=== PATIENT | male | born 2000 | race African-American/Black ===

== ENCOUNTER 2020-05-25 20:51 | Inpatient (IN) | payer MEDICAID ==
[~2020-05-25] VITALS: Ht 190.5 cm; Wt 83.0 kg
[2020-05-25] MEDS ORDERED: IV NORMAL SALINE 1000 ML BAG IV ONE (21:00)
[2020-05-25] MEDS ORDERED: NALOXONE HCL 0.4 MG/ML AMPUL IV ONE ×2 (21:00→23:45)
--- NOTE | 2020-05-25 21:00 | NUR ---
PER [facility] CALLED FOR OVERDOSE ON OXYCODONE, NARCAN ADMIN PER RA. PATIENT CONFUSED, DISORIENTED AND VERY RESTLESS. UNABLE TO RELAX.
[2020-05-25] MEDS ORDERED: NALOXONE 2 MG/2 ML SYRINGE ONE (21:15)
[2020-05-25 21:17] LABS: BASOPHILS % (AUTO) 0.2 % (0.0-2.0); EOSINOPHILS % (AUTO) 0.3 % (0.0-7.0); HEMATOCRIT 49.9 % (36.7-47.1); HEMOGLOBIN 16.4 g/dL (12.5-16.3); LYMPHOCYTES # (AUTO) 2.6 K/uL (20.0-40.0); LYMPHOCYTES % (AUTO) 13.9 % (20.5-51.5); MEAN CORPUSCULAR HEMOGLOBIN 32.3 uug (23.8-33.4); MEAN CORPUSCULAR HGB CONC 33 g/dL (32.5-36.3); MEAN CORPUSCULAR VOLUME 98.6 fL (73.0-96.2); MONOCYTES # (AUTO) 1.3 K/uL (2.0-10.0); NEUTROPHILS # (AUTO) 14.9 K/uL (1.8-8.9); NEUTROPHILS % (AUTO) 78.6 % (38.5-71.5); PLATELET COUNT (AUTO) 267 K/uL (152-348); RED BLOOD CELL COUNT(AUTO) 5.06 MIL/uL (4.06-5.63); WHITE BLOOD COUNT (AUTO) 18.9 K/uL (3.6-10.2)
[2020-05-25 21:22] LABS: CARBON DIOXIDE 17 mmol/L (21-32); CHLORIDE 102 mmol/L (98-107); CREATININE 2.6 mg/dL (0.6-1.3); GLUCOSE 97 mg/dL (74-106); POTASSIUM 5.3 mmol/L (3.5-5.1); UREA NITROGEN, BLOOD 21 mg/dL (7-18)
[2020-05-25 21:28] LABS: ACETAMINOPHEN < 2.0 ug/mL (10-30); ALANINE AMINOTRANSFERASE 348 U/L (16-63); ALKALINE PHOSPHATASE 126 U/L (50-136); ASPARTATE AMINOTRANSFERASE 345 U/L (15-37); BILIRUBIN,DIRECT 0.2 mg/dL (0.0-0.2); BILIRUBIN,TOTAL 0.8 mg/dL (0.2-1.0); TOTAL PROTEIN, SERUM 8.6 g/dL (6.4-8.2)
[2020-05-25 21:31] LABS: ETHANOL < 3 MG/DL (0-0)
[2020-05-25] MEDS ORDERED: NALOXONE HCL 0.4 MG/ML AMPUL ONE ×3 (22:11→23:00)
[2020-05-25] MEDS ORDERED: NALOXONE HCL 8 MG in IV NORMAL SALINE 230 ML IV PRN ×2 (22:45→23:45)
[2020-05-25] MEDS ORDERED: Z GUARD REMEDY PASTE 57 GM TUBE TOP PRN (23:45)
[2020-05-25] MEDS ORDERED: ONDANSETRON 4 MG/2 ML VIAL IV PRN (23:45)
[2020-05-26] VITALS (17 sets, daily range): BP systolic 109–145; BP diastolic 49–91
[2020-05-26 00:12] LABS: *BILIRUBIN,URIN NEGATIVE (NEGATIVE); *BLOOD, URINE 3+ (NEGATIVE); *CLARITY,URINE SLIGHTLY CLOUDY (CLEAR); *COLOR,URINE DARK YELLOW (YELLOW); *KETONES,URINE NEGATIVE (NEGATIVE); *UROBILINOGEN,URINE 0.2 E.U./dl (NORMAL); LEUKOCYTE ESTERASE ,URINE NEGATIVE (NEGATIVE); NITRITE, URINE NEGATIVE (NEGATIVE); UGLUCOSE NEGATIVE (NEGATIVE)
[2020-05-26] MEDS ORDERED: IV NS 1000 ML 1,000 ML IV ONE (00:15)
[2020-05-26 00:21] LABS: BACTERIA,URINE FEW /HPF (NONE SEEN); SQUAMOUS EPITHELIAL CELL,UR FEW /HPF (NONE SEEN)
--- NOTE | 2020-05-26 00:55 | NUR ---
Pt. admitted to ICU bed 1, under care of Dr. Gee. Belongs List completed. Report given to ICU nurse Bruce.
--- NOTE | 2020-05-26 01:00 | NUR ---
Admitted to CCU#1 via gurney from ED. \ ST / secured entrance monitor. Alert & orientated X 4, cooperative, pleasant gentleman; restraints removed. Denies suicidal idealogies. Bed alarm on; close ICU monitoring. Left & right PIV; site clear via pumps. Narcan 4 mg / 500 cc 5DW @ 25 cc/hr to right A/C. C/O right eye draining causing blurred vision. C/O has to assist moving his left arm, using his right arm, feels numb; unknown reason. C/O right inner thigh pain; unknown reason. C/O not being able to void; refusing Fernandez catheter; bladder scan 348cc. Stated he took Oxycodone 2.5 mg & Klonopin generic.
--- NOTE | 2020-05-26 01:30 | NUR ---
received patient from ER , awake , oriented , able to follow command on 2 liters nasal cannula , on narcan drip at 25 ml / hr , 4 mg / 500 ml , per pharmacist started in ER , 20 GA IN LEFT AC ,sinus tachy at 112 , no fever , vs stable , complains of left shoulder pain 5/10
[2020-05-26 01:31] LABS: *AMPHETAMINE, URINE NEGATIVE (NEGATIVE); *BARBITURATE, URINE NEGATIVE (NEGATIVE); *CANNABINOID, URINE POSITIVE (NEGATIVE); *COCCAINE, URINE NEGATIVE (NEGATIVE); *OPIATE, URINE NEGATIVE (NEGATIVE); *PHENCYCLIDINE SCREEN,URINE NEGATIVE (NEGATIVE)
[2020-05-26] MEDS ORDERED: NALOXONE HCL IV PRN (01:45)
[2020-05-26] MEDS ORDERED: NORMAL SALINE IV PRN (01:45)
--- NOTE | 2020-05-26 02:00 | NUR ---
bladder scan done 358 ml recorded , refused to have de leon imserted at this time
[2020-05-26] MEDS: IV 1/2NS 1000 ML 1,000 ML IV PRN ×2 (02:36→15:56)
[2020-05-26] MEDS ORDERED: SODIUM POLYSTYRENE SULFONATE 15 G/60 ML LIQUID UDC PO ONE ×2 (03:15)
[2020-05-26] MEDS ORDERED: SODIUM POLYSTYRENE SULF POWDER 15 GM UDC ONE (04:03)
--- NOTE | 2020-05-26 04:10 | NUR ---
STAT CT head done / increased weakness left upper extremity & pain. Note to pharmacy: [facility] would not scan / eMar.
--- NOTE | 2020-05-26 05:00 | NUR ---
OK to turn off Narcan gtt / Dr Saldaña. Left shoulder X-ray ordered.
[2020-05-26 05:40] LABS: BASOPHILS % (AUTO) 0.1 % (0.0-2.0); HEMATOCRIT 46.6 % (36.7-47.1); HEMOGLOBIN 15.8 g/dL (12.5-16.3); LYMPHOCYTES # (AUTO) 0.8 K/uL (20.0-40.0); MEAN CORPUSCULAR HEMOGLOBIN 32.1 uug (23.8-33.4); MEAN CORPUSCULAR HGB CONC 34 g/dL (32.5-36.3); MEAN CORPUSCULAR VOLUME 94.7 fL (73.0-96.2); MONOCYTES # (AUTO) 1.5 K/uL (2.0-10.0); MONOCYTES % (AUTO) 9.9 % (0.0-11.0); NEUTROPHILS # (AUTO) 13.1 K/uL (1.8-8.9); PLATELET COUNT (AUTO) 233 K/uL (152-348); RED BLOOD CELL COUNT(AUTO) 4.92 MIL/uL (4.06-5.63); WHITE BLOOD COUNT (AUTO) 15.4 K/uL (3.6-10.2)
[2020-05-26 05:48] LABS: CREATININE 1.8 mg/dL (0.6-1.3); MAGNESIUM 2.1 mg/dL (1.8-2.4); PHOSPHOROUS 4.3 mg/dL (2.5-4.9); POTASSIUM 4.9 mmol/L (3.5-5.1); TOTAL PROTEIN, SERUM 7.1 g/dL (6.4-8.2)
[2020-05-26 05:54] LABS: THYROID STIMULATING HORMONE 0.312 mIU/mL (0.358-3.740)
--- NOTE | 2020-05-26 07:30 | NUR ---
RECIEVED PT LYING IN BED, AWAKE, ALERT AND ORIENTEDX3. SPEECH IS CLEAR.MOVES ALL EXTREMETIES EXCEPT THE LEFT ARM IS WEAK AND FLACCID. GOOD RADIAL PULSE. PT DENIES ANY MEADOWS OR DIZZINESS. SEEN AND EXAMINED BY DR BOO, NO NEW ORDERS MADE. SEEN AND EXAMINED BY RUI GUERRERO, BOTH OF THEM AWARE OF PT'S LEFT ARM WEAKNESS. MAIN IVF IS 1/2 NS AT 75 ML /HR ON THE LEFT AC. PT REFUSED TO HAVE A NEEDLE ON HIS LEFT ARM. MOVED IVF ON THE RIGHT AC.
--- NOTE | 2020-05-26 08:30 | NUR ---
PT IS VERY HUNGRY, ATE GOOD BREAKFAST AND TOLERATING WELL . GOOD SWALLOWING REFLEX.
--- NOTE | 2020-05-26 11:00 | NUR ---
PT IS BEING TRANSFERRED TO TELE. [facility] AWARE.
--- NOTE | 2020-05-26 13:30 | NUR ---
SEE AND EVALUATED BY THE CRISIS TEAM EDWIGE. NO HOLD ORDER. PT IS REFFERED TO PSYCHIATRIC CONSULTATION, DR WEN.
--- NOTE | 2020-05-26 14:00 | NUR ---
REPORT GIVEN TO TRINA ARMENTA.
--- NOTE | 2020-05-26 15:00 | NUR ---
PT IS TRANSFERRED TO 310 VIA W/C. CONDITION IS STAB LE BUT LEFT ARM STILL REMAINS FLACCID. RN IS AWARE.
--- NOTE | 2020-05-26 15:25 | NUR ---
received patient from ccu, oriented to room ,made comfortable. assisted to brp, voided. voided clear yellow urine without difficulty.aware to call nurse for assistance to prevent fall, injury, verbalized understanding. left arm flaccid ,needed to be lifted by right arm for placement on pillow, or towards abdomen. able to move left shoulder well. denies pain but feels tingling on left fingers when touched. otherwise, neuro signs are normal. right antecubital iv # [address], 1/2 ns at 75 ml/ hr. no skin breakdown noted.
--- NOTE | 2020-05-26 16:27 | NUR ---
dr ibarra in saw patient, made order and carried out.
--- NOTE | 2020-05-26 18:01 | NUR ---
urine specimen sent to lab. noel Jamil aware patient request a call to his psych counselor, Yosef Reed. [phone]. will do in am after pt seen by our psychiatrist. patient aware, appreciative. able to move left hand wrist now.
[2020-05-26 18:04] LABS: *BILIRUBIN,URIN NEGATIVE (NEGATIVE); *BLOOD, URINE 2+ (NEGATIVE); *CLARITY,URINE CLEAR (CLEAR); *COLOR,URINE YELLOW (YELLOW); *KETONES,URINE NEGATIVE (NEGATIVE); *UROBILINOGEN,URINE 0.2 E.U./dl (NORMAL); LEUKOCYTE ESTERASE ,URINE NEGATIVE (NEGATIVE); NITRITE, URINE NEGATIVE (NEGATIVE); PH,URINE 6.5 (5.0-8.0); UGLUCOSE NEGATIVE (NEGATIVE)
[2020-05-26 18:37] LABS: *CREATININE,URINE 77.1 mg/dL (30-125); *URINE TOTAL PROTEIN RANDOM 22.6 mg/dL (<150/24HR)
[2020-05-26 19:55] LABS: BACTERIA,URINE FEW /HPF (NONE SEEN); SQUAMOUS EPITHELIAL CELL,UR FEW /HPF (NONE SEEN)
--- NOTE | 2020-05-27 | NUR ---
Patient is asleep. Psych consult by dr. Le completed. patient is asking not to be on IV fluids. Good oral intake and good appetite. Drank 2 glasses of juice and 3 cups of water. Pleasant demeanor, coherent in conversation, denies SI or attempts to commit suicide. Claims that he was affected by the quarantine and made a mistake when he bought what he appears to be oxycontin and Klonopin on the street. 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 Tingling is reported from elbow down to the fingertips. Patient ambulated safely once to the bathroom without assistance. Gait is steady.
[2020-05-27 00:18] VITALS: BP 139/77
[2020-05-27 05:33] VITALS: BP 131/82
[2020-05-27 06:15] LABS: BASOPHILS % (AUTO) 0.2 % (0.0-2.0); EOSINOPHILS % (AUTO) 0.3 % (0.0-7.0); HEMATOCRIT 46.3 % (36.7-47.1); HEMOGLOBIN 15.7 g/dL (12.5-16.3); LYMPHOCYTES # (AUTO) 1.8 K/uL (20.0-40.0); LYMPHOCYTES % (AUTO) 13.6 % (20.5-51.5); MEAN CORPUSCULAR HEMOGLOBIN 31.9 uug (23.8-33.4); MEAN CORPUSCULAR HGB CONC 34 g/dL (32.5-36.3); MEAN CORPUSCULAR VOLUME 94.2 fL (73.0-96.2); MONOCYTES # (AUTO) 1.2 K/uL (2.0-10.0); MONOCYTES % (AUTO) 8.7 % (0.0-11.0); NEUTROPHILS # (AUTO) 10.3 K/uL (1.8-8.9); NEUTROPHILS % (AUTO) 77.2 % (38.5-71.5); PLATELET COUNT (AUTO) 213 K/uL (152-348); RED BLOOD CELL COUNT(AUTO) 4.92 MIL/uL (4.06-5.63); WHITE BLOOD COUNT (AUTO) 13.4 K/uL (3.6-10.2)
[2020-05-27 06:40] LABS: BILIRUBIN,TOTAL 1.2 mg/dL (0.2-1.0); CREATININE 1.2 mg/dL (0.6-1.3); MAGNESIUM 2.3 mg/dL (1.8-2.4); PHOSPHOROUS 1.7 mg/dL (2.5-4.9); POTASSIUM 3.8 mmol/L (3.5-5.1); TOTAL PROTEIN, SERUM 7.1 g/dL (6.4-8.2)
[2020-05-27 08:00] VITALS: BP 124/90
--- NOTE | 2020-05-27 08:30 | NUR ---
Received pt in bed asleep but arousable to name. Denied any suicidal ideation. On RA with no SOB or distress noted at this time. 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 aware. IV on right AC 20g flushed and patent. Able to ambulate to bathroom. No other complaints. Bed locked in lowest position with siderails 2x up. Call light and phone within reach.
[2020-05-27] MEDS ORDERED: NEUTRA PHOS PACKET PO ONE (09:15)
--- NOTE | 2020-05-27 10:45 | NUR ---
Pt was refusing IV fluids, educated with risks and benefits, verbalized understanding and agreed for IV fluids. Old bag had 400mL remaining, started a new 1/2 NS 1000mL IV bag.
[2020-05-27] MEDS: IV 1/2NS 1000 ML 1,000 ML IV PRN (10:47)
[2020-05-27 11:45] VITALS: BP 116/73
[2020-05-27 16:00] VITALS: BP 123/72
--- NOTE | 2020-05-27 18:38 | NUR ---
Pt took shower today, assisted by Eboni SIEGEL.
--- NOTE | 2020-05-27 18:38 | NUR ---
Pt stable throughout shift. Complained of tingling sensation still in his left forearm. MD aware. Encouraged to do active range of motions, verbalized understanding
--- NOTE | 2020-05-27 19:00 | NUR ---
PATIENT ALERT ORIENTED, NO SOB NO CHEST PAIN. PATIENT TELE MONITOR SINUS RHYTHM, CONT TO MONITOR.
[2020-05-27 20:27] VITALS: BP 125/72
[2020-05-27] MEDS ORDERED: IV 1/2NS 1000 ML 1,000 ML IV PRN (20:58)
[2020-05-27] MEDS ORDERED: ACETAMINOPHEN ES 500 MG TABLET PO PRN (21:00)
--- NOTE | 2020-05-27 21:02 | NUR ---
PATIENT COMPLAIN OF LEFT ARM PAIN, NOTIFY JONAH MEAT LOINER WITH ORDER OF TYLENOL 1GM PO ONCE ONLY.
--- NOTE | 2020-05-27 21:10 | NUR ---
JONAH GUERRERO WITH ORDER TO GIVEN NORMAL SALINE 125ML/HR.
[2020-05-27] MEDS: IV NS 1000 ML 1,000 ML IV SCH (21:16)
[2020-05-28 00:33] VITALS: BP 127/76
[2020-05-28] MEDS: IV NS 1000 ML 1,000 ML IV SCH (05:36)
--- NOTE | 2020-05-28 05:50 | NUR ---
PATIENT ASLEEP BUT EASILY AROUSABLE, NO SOB NO CHEST PAIN, TELE MONITOR SINUS RHYTHM SINUS TACHY WHEN DOING ACTIVITY OF ADL'S. CONT TO MONITOR.
[2020-05-28 05:51] VITALS: BP 116/70
[2020-05-28 06:17] LABS: BASOPHILS # (AUTO) 0.1 K/uL (0.0-8.0); BASOPHILS % (AUTO) 0.6 % (0.0-2.0); EOSINOPHILS # (AUTO) 0.2 K/uL (0.0-0.7); EOSINOPHILS % (AUTO) 1.7 % (0.0-7.0); HEMATOCRIT 46.1 % (36.7-47.1); HEMOGLOBIN 15.6 g/dL (12.5-16.3); LYMPHOCYTES # (AUTO) 2.7 K/uL (20.0-40.0); LYMPHOCYTES % (AUTO) 23.7 % (20.5-51.5); MEAN CORPUSCULAR HGB CONC 34 g/dL (32.5-36.3); MEAN CORPUSCULAR VOLUME 94.7 fL (73.0-96.2); MONOCYTES # (AUTO) 0.9 K/uL (2.0-10.0); MONOCYTES % (AUTO) 8.4 % (0.0-11.0); NEUTROPHILS # (AUTO) 7.4 K/uL (1.8-8.9); NEUTROPHILS % (AUTO) 65.6 % (38.5-71.5); PLATELET COUNT (AUTO) 218 K/uL (152-348); RED BLOOD CELL COUNT(AUTO) 4.87 MIL/uL (4.06-5.63); WHITE BLOOD COUNT (AUTO) 11.2 K/uL (3.6-10.2)
[2020-05-28 06:38] LABS: BILIRUBIN,DIRECT 0.2 mg/dL (0.0-0.2); BILIRUBIN,TOTAL 1.9 mg/dL (0.2-1.0); CREATININE 1.2 mg/dL (0.6-1.3); POTASSIUM 4.5 mmol/L (3.5-5.1); TOTAL PROTEIN, SERUM 6.8 g/dL (6.4-8.2)
--- NOTE | 2020-05-28 08:00 | NUR ---
RECEIVED PATIENT IN BED AWAKE ALERT AND ORIENTED DENIES PAIN OR DISCOMFORTS PATIENT IS NON ROOM AIR WITH NO SOB AT THIS TIME APPETITE IS FAIR WITH IVF IN PROGRESS ORDERED CALL LIGHTS AND PERSONAL BELONGINGS ARE WITHIN EASY REACH MADE COMFORTABLE WILL CONTINUE TO OBSERVE
[2020-05-28 11:30] VITALS: BP 109/67
--- NOTE | 2020-05-28 12:00 | NUR ---
PATIENT SEEN AND EXAMINED BY JOSH WITH ORDERS TO D/C TELEMETRY D/C PLANNING IN AM PATIENT AWARE.
[2020-05-28] MEDS: IV NS 1000 ML 1,000 ML IV PRN ×2 (14:01→21:05)
[2020-05-28 16:00] VITALS: BP 120/68
--- NOTE | 2020-05-28 18:00 | NUR ---
PATIENT IS RESTING IN BED VERY COMFORTABLE WITH IVF ORDERED MADE COMFORTABLE WILL CONTINUE TO OBSERVE.
--- NOTE | 2020-05-28 20:00 | NUR ---
Received patient and alert. Patient shows no signs or symptoms of distress at this time. Vital signs stable. IV heplock on Right forearm in place and is patent. Bed set to lowest position. Call light within reach. Side rails x2 are up. Will continue to monitor patient.
[2020-05-28 20:38] VITALS: BP 136/77
[2020-05-29] MEDS: IV NS 1000 ML 1,000 ML IV PRN ×4 (03:58→22:50)
[2020-05-29 05:54] LABS: BASOPHILS # (AUTO) 0.1 K/uL (0.0-8.0); BASOPHILS % (AUTO) 0.6 % (0.0-2.0); EOSINOPHILS # (AUTO) 0.2 K/uL (0.0-0.7); EOSINOPHILS % (AUTO) 2.2 % (0.0-7.0); HEMATOCRIT 43.1 % (36.7-47.1); HEMOGLOBIN 14.7 g/dL (12.5-16.3); LYMPHOCYTES # (AUTO) 2.8 K/uL (20.0-40.0); LYMPHOCYTES % (AUTO) 25.1 % (20.5-51.5); MEAN CORPUSCULAR HEMOGLOBIN 32.1 uug (23.8-33.4); MEAN CORPUSCULAR HGB CONC 34 g/dL (32.5-36.3); MEAN CORPUSCULAR VOLUME 94.2 fL (73.0-96.2); MONOCYTES # (AUTO) 0.8 K/uL (2.0-10.0); MONOCYTES % (AUTO) 6.7 % (0.0-11.0); NEUTROPHILS # (AUTO) 7.4 K/uL (1.8-8.9); NEUTROPHILS % (AUTO) 65.4 % (38.5-71.5); PLATELET COUNT (AUTO) 208 K/uL (152-348); RED BLOOD CELL COUNT(AUTO) 4.57 MIL/uL (4.06-5.63); WHITE BLOOD COUNT (AUTO) 11.3 K/uL (3.6-10.2)
[2020-05-29 06:05] VITALS: BP 123/76
--- NOTE | 2020-05-29 06:17 | NUR ---
Patient shows no signs or symptoms of distress at this time. Vital signs stable. Patient to be endorsed to day shift nurse in stable condition.
[2020-05-29 06:18] LABS: CREATININE 1.2 mg/dL (0.6-1.3); POTASSIUM 4.1 mmol/L (3.5-5.1)
--- NOTE | 2020-05-29 09:30 | NUR ---
PATIENT SEEN AND EXAMINED BY DR KIAH BORREGO WITH NEW ORDER TO INCREASER IVF TO 250ML/HOUR. PATIENT IS ANXIOUS TO GO HOME BUT MD IS DISCOURAGING HIM
[2020-05-29 12:00] VITALS: BP 124/73
--- NOTE | 2020-05-29 14:30 | NUR ---
NOTED DISCHARGE ORDER SPOKE WITH PATIENT TO AND NOTIFIED HIM OF THE DISCHARGE ORDERED AND HE IN TURN CALLED HIS MOM AND HIS MOM STATED THAT KIAH MARTINEZ HAD INFORMED THEM THAT THE GINNER HERE WILL ARRANGE AND CONFIRM THE TRANSITION FROM [facility] AND THAT HE TOLD THEM THAT PATIENT WILL BE DISCHARGED TOMORROW.MESSAGE SENT TO KIAH MARTINEZ TO INFORM HIM OF THE ABOVE.
[2020-05-29 16:00] VITALS: BP 137/85
--- NOTE | 2020-05-29 18:21 | NUR ---
Patient continues to show no signs or symptoms of distress at this time. Patient's vital signs stable. Patient laying in bed comfortably smiling and on his computer. Patient is being turned over to the shift mechanic in stable condition.
[2020-05-29 20:06] VITALS: BP 131/75
--- NOTE | 2020-05-30 | NUR ---
report given to night nurse.
[2020-05-30] MEDS: IV NS 1000 ML 1,000 ML IV PRN ×2 (03:05→08:30)
[2020-05-30 04:21] VITALS: BP 120/75
--- NOTE | 2020-05-30 06:32 | NUR ---
End of shift report: Quiet night. [id number] admitted for drug overdose. No acute distress noted. VSS IVF's infusing well. Denies any pain nor any discomfort. No suicidal ideation noted. Voiding well.
[2020-05-30 06:44] LABS: BASOPHILS # (AUTO) 0.1 K/uL (0.0-8.0); BASOPHILS % (AUTO) 0.5 % (0.0-2.0); EOSINOPHILS # (AUTO) 0.2 K/uL (0.0-0.7); EOSINOPHILS % (AUTO) 1.8 % (0.0-7.0); HEMATOCRIT 42.3 % (36.7-47.1); HEMOGLOBIN 14.4 g/dL (12.5-16.3); LYMPHOCYTES # (AUTO) 2.3 K/uL (20.0-40.0); LYMPHOCYTES % (AUTO) 21.6 % (20.5-51.5); MEAN CORPUSCULAR HEMOGLOBIN 32.2 uug (23.8-33.4); MEAN CORPUSCULAR HGB CONC 34 g/dL (32.5-36.3); MEAN CORPUSCULAR VOLUME 94.9 fL (73.0-96.2); MONOCYTES # (AUTO) 0.7 K/uL (2.0-10.0); MONOCYTES % (AUTO) 6.6 % (0.0-11.0); NEUTROPHILS # (AUTO) 7.4 K/uL (1.8-8.9); NEUTROPHILS % (AUTO) 69.5 % (38.5-71.5); PLATELET COUNT (AUTO) 220 K/uL (152-348); RED BLOOD CELL COUNT(AUTO) 4.46 MIL/uL (4.06-5.63); WHITE BLOOD COUNT (AUTO) 10.7 K/uL (3.6-10.2)
[2020-05-30 06:57] LABS: BILIRUBIN,TOTAL 1.2 mg/dL (0.2-1.0); CREATININE 1.1 mg/dL (0.6-1.3); MAGNESIUM 1.7 mg/dL (1.8-2.4); POTASSIUM 3.7 mmol/L (3.5-5.1); TOTAL PROTEIN, SERUM 6.3 g/dL (6.4-8.2)
[2020-05-30] MEDS ORDERED: MAGNESIUM OXIDE 400 MG TABLET PO ONE (07:45)
[2020-05-30 12:00] VITALS: BP 125/68
--- NOTE | 2020-05-30 16:09 | NUR ---
D/C TO HOME. PICKED UP BY MOM. D/C INSTRUCTIONS GIVEN VERBALIZED UNDERSTANDING. [facility] LOC #20G D/C INTACT
== END 2020-05-30 14:55 | disposition home or self-care (01) | DRG 812 ==
LOC: ER 21:00 → ICU 05-26 00:12 → CCU 05-26 01:08 → TELE3 05-26 15:33 → MEDSURG3 05-28 08:30
PROVIDERS: ADMIT Nurse Practitioner Acute Care; ATTEND Hospitalist
DX: T40.2X1A Poisoning by other opioids, accidental (unintentional), initial encounter (principal); J96.00 Acute respiratory failure, unspecified whether with hypoxia or hypercapnia; K72.00 Acute and subacute hepatic failure without coma; N17.0 Acute kidney failure with tubular necrosis; G92 Toxic encephalopathy; E83.42 Hypomagnesemia; M62.82 Rhabdomyolysis; E83.51 Hypocalcemia; E87.2 Acidosis; E87.5 Hyperkalemia; F63.9 Impulse disorder, unspecified; D72.829 Elevated white blood cell count, unspecified; R74.0 Nonspecific elevation of levels of transaminase and lactic acid dehydrogenase [LDH]; Z71.6 Tobacco abuse counseling; F19.10 Other psychoactive substance abuse, uncomplicated; Y92.009 Unspecified place in unspecified non-institutional (private) residence as the place of occurrence of the external cause; F17.210 Nicotine dependence, cigarettes, uncomplicated; E05.90 Thyrotoxicosis, unspecified without thyrotoxic crisis or storm; R20.0 Anesthesia of skin; K76.1 Chronic passive congestion of liver; F12.90 Cannabis use, unspecified, uncomplicated
CPT/HCPCS: 36415; 70450; 71045; 73020; 80307; 80329; 82652; 83605; 83735; 83970; 84100; 84156; 84300; 84443; 84481; 85025; 93005; A4663; A9150; G0378; G0480; G0480-TC; J2310; J3490; J7030; J7060